=== PATIENT | female | born 1960 | race Caucasian/White ===

== ENCOUNTER → 2021-12-11 | Day surgery (SDC) | payer BC ==
[2021-12-10 12:15] VITALS: BMI 33.0
[~2021-12-11] MED LIST: LACTATED RINGERS 1,000 ML IV SCH; LIDOCAINE 1% (10MG/ML) FOR IV START INTRADERMA PRN; PROPOFOL 10 MG/ML 20 ML VIAL IV ONE
[2021-12-11 10:09] VITALS: RESP 16; TEMP 97.8
--- NOTE | 2021-12-11 11:34 | P.GSHP ---
History of Present Illness H&P Date: 12/11/21 Chief Complaint: GI bleed Is a 7-year-old female with history of GI bleed. Patient presents today for colonoscopy. Past Medical History Past Medical History: Asthma, Hyperlipidemia History of Any Multi-Drug Resistant Organisms: None Reported Past Surgical History: Joint Replacement, Orthopedic Surgery Additional Past Surgical History / Comment(s): cecy knee replacement,cecy wrist carpel tunnel Past Anesthesia/Blood Transfusion Reactions: No Reported Reaction Smoking Status: Former smoker - Past Family History Mother Family Medical History: Coronary Artery Disease (CAD), Diabetes Mellitus, Renal Disease Medications and Allergies Home Medications Medication Instructions Recorded Confirmed Type Albuterol Inhaler [Ventolin Hfa 2 puff INHALATION RT-QID PRN 12/10/21 12/10/21 History Inhaler] Fluticasone Nasal [place] [Flonase 1 spray EA NOSTRIL DAILY PRN 12/10/21 12/10/21 History Nasal [place]] Levothyroxine Sodium [Synthroid] 112 mcg PO DAILY 12/10/21 12/10/21 History Naproxen Sodium [Aleve] 220 mg PO BID PRN 12/10/21 12/10/21 History polyethylene glycoL 3350 [Miralax] 17 gm PO DAILY PRN 12/10/21 12/10/21 History Allergies Allergy/AdvReac Type Severity Reaction Status Date / Time sulfamethoxazole Allergy Rash/Hives Verified 12/11/21 10:08 [From Bactrim] trimethoprim [From Bactrim] Allergy Rash/Hives Verified 12/11/21 10:08 Surgical - Exam Vital Signs Temp Pulse Resp BP Pulse Ox 97.8 F 77 16 173/109 98 12/11/21 10:06 12/11/21 10:06 12/11/21 10:06 12/11/21 10:06 12/11/21 10:06 - General well developed, well nourished, no distress - Eyes PERRL - ENT normal pinna - Neck no masses - Respiratory normal expansion - Cardiovascular Rhythm: regular - Abdomen Abdomen: soft, non tender Assessment and Plan Assessment: GI bleed. We'll perform colonoscopy.
--- NOTE | 2021-12-11 11:57 | P.OP ---
Date of Procedure: 12/11/21 Preoperative Diagnosis: GI bleed Postoperative Diagnosis: Internal hemorrhoids Diverticulosis Procedure(s) Performed: Colonoscopy Anesthesia: MAC Surgeon: [facility] Pathology: none sent Condition: stable Disposition: PACU Description of Procedure: The patient's placed on the endoscopy table in the lateral position. She received IV sedation. Digital rectal exam was performed which revealed internal hemorrhoids. The flexible colonoscope was then placed patient anus and passed throughout the entire colon. The ileocecal valve was visualized. The cecum, ascending and transverse colon appeared normal. In the descending sigmoid colon there is extensive diverticular changes. The scope was then brought back the rectum and this appeared normal. Scope was then withdrawn internal hemorrhoids are noted. The patient did have some bleeding from internal hemorrhoids and colonoscopy. The patient was presumed have bleeding from internal hemorrhoids.
[2021-12-11 12:28] VITALS: BP 119/83; PULSE 68
== END | disposition home or self-care (01) ==
LOC: ORWHC2ENDO 09:41
PROVIDERS: ATTEND Surgery
DX: K64.8 Other hemorrhoids (principal); K57.30 Diverticulosis of large intestine without perforation or abscess without bleeding; K92.2 Gastrointestinal hemorrhage, unspecified; J45.909 Unspecified asthma, uncomplicated; E78.5 Hyperlipidemia, unspecified; E07.9 Disorder of thyroid, unspecified; Z96.653 Presence of artificial knee joint, bilateral; Z87.891 Personal history of nicotine dependence; Z83.3 Family history of diabetes mellitus; Z82.49 Family history of ischemic heart disease and other diseases of the circulatory system; Z84.1 Family history of disorders of kidney and ureter; Z79.890 Hormone replacement therapy; Z79.899 Other long term (current) drug therapy; Z88.2 Allergy status to sulfonamides
CPT/HCPCS: 45378; J2704